=== PATIENT | female | born 1975 | race Caucasian/White ===

== ENCOUNTER → 2016-08-22 | Outpatient (CLI) | payer BC | LOC: WI 13:30 | PROVIDERS: ATTEND Physician Assistant | DX: Z12.31 Encounter for screening mammogram for malignant neoplasm of breast (principal) | CPT/HCPCS: 77067; G0202 ==

== ENCOUNTER 2016-12-07 08:42 | Emergency (ER) | payer BC ==
[2016-12-07] MEDS ORDERED: KETOROLAC TROMETHAMINE 60 MG/2 ML SDV IM ONE (09:28)
--- NOTE | 2016-12-07 09:30 | ER Document Report ---
ED Medical Screen (RME) - General Chief Complaint: Leg Pain Stated Complaint: LEFY LEG PAIN Time Seen by Provider: 12/07/16 09:24 Mode of Arrival: Wheelchair Information source: Patient TRAVEL OUTSIDE OF THE [place] IN LAST 30 DAYS: No - HPI Patient complains to provider of: Left leg pain Onset: This morning - pt. with acute onset of left leg pain earlier this am -- she denies h/o trauma - Related Data Allergies/Adverse Reactions: No Known Allergies Allergy (Verified 12/07/16 08:58) Past Medical History - Past Medical History Cardiac Medical History: Reports: Hx Hypertension - NOT ON MEDS AT THIS TIME Denies: Hx Coronary Artery Disease - ELEVATED LDL, Hx Heart Attack Pulmonary Medical History: Denies: Hx Asthma, Hx Bronchitis, Hx COPD, Hx Pneumonia Neurological Medical History: Denies: Hx Cerebrovascular Accident, Hx Seizures Renal/ Medical History: Denies: Hx Peritoneal Dialysis GI Medical History: Reports: Hx Gastroesophageal Reflux Disease Musculoskeltal Medical History: Reports Hx Arthritis - MID BACK, Reports Hx Musculoskeletal Deformity, Reports Hx Musculoskeletal Trauma Past Surgical History: Reports: Hx Abdominal Surgery - tummy tuck, Hx Breast Surgery, Hx Cholecystectomy, Hx Hysterectomy, Hx Orthopedic SurgeryComment Only : Hx Bowel Surgery - comestic - Immunizations Immunizations up to date: Yes Hx Diphtheria, Pertussis, Tetanus Vaccination: Yes Physical Exam - Vital signs Vitals: Temp Pulse Resp BP Pulse Ox 98.3 F 89 18 160/104 H 98 12/07/16 08:57 12/07/16 08:57 12/07/16 08:57 12/07/16 08:57 12/07/16 08:57 Course - Vital Signs Vital signs: Temp Pulse Resp BP Pulse Ox 98.3 F 89 18 160/104 H 98 12/07/16 08:57 12/07/16 08:57 12/07/16 08:57 12/07/16 08:57 12/07/16 08:57
[2016-12-07 10:21] LABS: ABSOLUTE BASOPHILS # (AUTO) 0.1 10^3/uL (0.0-0.2); ABSOLUTE EOSINOPHILS # (AUTO) 0.1 10^3/uL (0.0-0.6); ABSOLUTE LYMPHOCYTES (AUTO) 3.1 10^3/uL (0.5-4.7); ABSOLUTE MONOCYTES (AUTO) 0.5 10^3/uL (0.1-1.4); ABSOLUTE NEUT (AUTO) 5.3 10^3/uL (1.7-8.2); BASOPHILS % (AUTO) 1.3 % (0-2); EOSINOPHILS % (AUTO) 1.5 % (0-6); HEMATOCRIT 43.3 % (36.0-47.0); HEMOGLOBIN 14.6 g/dL (12.0-15.5); HGB HCT DIFFERENCE 0.5; LYMPHOCYTES % (AUTO) 33.7 % (13-45); MEAN CORPUSCULAR HEMOGLOBIN 29.8 pg (27.0-33.4); MEAN CORPUSCULAR HGB CONC 33.8 g/dL (32.0-36.0); MEAN CORPUSCULAR VOLUME 88 fl (80-97); MONOCYTES % (AUTO) 5.6 % (3-13); RED BLOOD COUNT 4.91 10^6/uL (3.72-5.28); RED CELL DISTRIBUTION WIDTH 13.1 % (11.5-14.0); SEGMENTED NEUTROPHILS % (AUTO) 57.9 % (42-78); WHITE BLOOD COUNT 9.2 10^3/uL (4.0-10.5)
[2016-12-07 10:26] LABS: APPEARANCE,URINE SLIGHTLY-CLOUDY; BILIRUBIN,URINE NEGATIVE (NEGATIVE); GLUCOSE, URINE NEGATIVE (NEGATIVE); KETONES,URINE NEGATIVE (NEGATIVE); LEUKOCYTE ESTERASE,URINE NEGATIVE (NEGATIVE); NITRITE,URINE NEGATIVE (NEGATIVE); PROTEIN,URINE NEGATIVE (NEGATIVE); UROBILINOGEN,URINE NEGATIVE mg/dL (<2.0)
[2016-12-07 10:38] LABS: ALANINE AMINOTRANSFERASE 52 U/L (9-52); ALBUMIN 5.1 g/dL (3.5-5.0); ALKALINE PHOSPHATASE 86 U/L (38-126); ANION GAP 14 (5-19); ASPARTATE AMINO TRANSFERASE 30 U/L (14-36); BILIRUBIN,DIRECT 0.3 mg/dL (0.0-0.4); BILIRUBIN,TOTAL 0.7 mg/dL (0.2-1.3); BLOOD UREA NITROGEN 16 mg/dL (7-20); CALCIUM 10.2 mg/dL (8.4-10.2); CARBON DIOXIDE 26 mmol/L (22-30); CHLORIDE 101 mmol/L (98-107); GLUCOSE 104 mg/dL (75-110); POTASSIUM 4.7 mmol/L (3.6-5.0); SODIUM 140.6 mmol/L (137-145); TOTAL PROTEIN 8.2 g/dL (6.3-8.2)
[2016-12-07] MEDS ORDERED: HYDROCODONE/ACETAMINOPHEN 5-325 MG TABLET PO ONE (11:08)
--- NOTE | 2016-12-07 11:11 | ER Document Report ---
ED Extremity Problem, Lower - General Chief Complaint: Leg Pain Stated Complaint: LEFT LEG PAIN Time Seen by Provider: 12/07/16 09:24 Mode of Arrival: Wheelchair Information source: Patient TRAVEL OUTSIDE OF THE [place] IN LAST 30 DAYS: No - HPI Patient complains to provider of: Pain Location: Knee, Leg Occurred: This morning Onset/Duration: Sudden Quality of pain: Dull, Sharp, Stabbing Severity: Moderate Pain Level: 4 Recent injury: No Associated symptoms: denies: Chest pain, Short of breath Exacerbated by: Movement Relieved by: Nothing Notes: Patient is a 40-year-old female who presents to the emergency room complaining of left posterior knee pain that started abruptly around 430 this morning, it is sharp and stabbing in nature in the popliteal space, and radiates down through the calf, it hurts when she moves it, or ambulate on it, no history of similar symptoms previously, she denies any injury or trauma, no shortness of breath and no chest pain, patient does not smoke, she does not take any hormone replacement or oral control, she denies any recent periods of immobilization, no history of DVT - Related Data Allergies/Adverse Reactions: No Known Allergies Allergy (Verified 12/07/16 08:58) Past Medical History - General Information source: Patient - Social History Smoking Status: Never Smoker Chew tobacco use (# tins/day): No Frequency of alcohol use: None Drug Abuse: None Family History: Reviewed & Not Pertinent, Arthritis, CAD, Hyperlipidemia, Hypertension, Malignancy Patient has suicidal ideation: No Patient has homicidal ideation: No - Past Medical History Cardiac Medical History: Reports: Hx Hypertension - NOT ON MEDS AT THIS TIME Denies: Hx Coronary Artery Disease - ELEVATED LDL, Hx Heart Attack Pulmonary Medical History: Denies: Hx Asthma, Hx Bronchitis, Hx COPD, Hx Pneumonia Neurological Medical History: Denies: Hx Cerebrovascular Accident, Hx Seizures Renal/ Medical History: Denies: Hx Peritoneal Dialysis GI Medical History: Reports: Hx Gastroesophageal Reflux Disease Musculoskeltal Medical History: Reports Hx Arthritis - MID BACK, Reports Hx Musculoskeletal Deformity, Reports Hx Musculoskeletal Trauma Past Surgical History: Reports: Hx Abdominal Surgery - tummy tuck, Hx Breast Surgery, Hx Cholecystectomy, Hx Hysterectomy, Hx Orthopedic SurgeryComment Only : Hx Bowel Surgery - comestic - Immunizations Immunizations up to date: Yes Hx Diphtheria, Pertussis, Tetanus Vaccination: Yes Review of Systems - Review of Systems Constitutional: No symptoms reported EENT: No symptoms reported Cardiovascular: No symptoms reported Respiratory: No symptoms reported Gastrointestinal: No symptoms reported Genitourinary: No symptoms reported Female Genitourinary: No symptoms reported Musculoskeletal: See HPI Skin: No symptoms reported Hematologic/Lymphatic: No symptoms reported Neurological/Psychological: No symptoms reported -: Yes All other systems reviewed and negative Physical Exam - Vital signs Vitals: Temp Pulse Resp BP Pulse Ox 98.3 F 89 18 160/104 H 98 12/07/16 08:57 12/07/16 08:57 12/07/16 08:57 12/07/16 08:57 12/07/16 08:57 - Notes Notes: - General General appearance: Appears well, Alert In distress: None - HEENT Head: Normocephalic, Atraumatic Eyes: Normal Conjunctiva: Normal Extraocular movements intact: Yes Eyelashes: Normal Pupils: PERRL - Respiratory Respiratory status: No respiratory distress - Cardiovascular Rhythm: Regular - Abdominal Inspection: Normal - Back Back: Normal - Extremities General upper extremity: Normal inspection General lower extremity: The palpate in popliteal space, positive calf tenderness, positive Homans sign on left, distal sensation and motor is intact with 2+ DP pulses and brisk capillary refill - Neurological Neuro grossly intact: Yes Orientation: AAOx4 Marine Coma Scale Eye Opening: Spontaneous Marine Coma Scale Verbal: Oriented [place] Coma Scale Motor: Obeys Commands [place] Coma Scale Total: 15 - Psychological Associated symptoms: Normal affect, Normal mood - Skin Skin Temperature: Warm Skin Moisture: Dry Skin Color: Normal Course - Re-evaluation Re-evalutation: 12/07/16 12:34 Imaging findings were discussed with patient at bedside which are unremarkable, no evidence of DVT, she does report some relief of pain with the hydrocodone that she received in the emergency room, she will be discharged with prescription for same as well as information for follow-up and advised to return if symptoms worsen, patient acknowledges understanding and agreement with this plan - Vital Signs Vital signs: Temp Pulse Resp BP Pulse Ox 98.3 F 89 18 160/104 H 98 12/07/16 08:57 12/07/16 08:57 12/07/16 08:57 12/07/16 08:57 12/07/16 08:57 - Laboratory Result Diagrams: 12/07/16 10:05 12/07/16 10:05 Laboratory results interpreted by me: 12/07/16 10:05 Albumin 5.1 H - Diagnostic Test Radiology reviewed: Image reviewed, Reports reviewed Discharge - Discharge Clinical Impression: Knee pain, left Qualifiers: Chronicity: acute Qualified Code(s): M25.562 - Pain in left knee Condition: Stable Disposition: HOME, SELF-CARE Instructions: Suspected Internal Knee Injury ([facility]), Leg Pain Nonspecific ([facility]) Additional Instructions: Follow up with your primary care provider and an orthopedic surgeon in one to 2 days. Return to the emergency room immediately if symptoms worsen or any additional concerns. Ice and elevate the affected extremity. Limit weightbearing. Prescriptions: Hydrocodone/Acetaminophen [Hydrocodon-Acetaminophen 5-325] 1 each PO Q6 #20 tablet Forms: Return to Work
--- NOTE | 2016-12-07 12:17 | RADIOLOGY REPORT (SQ) ---
EXAM DESCRIPTION: VENOUS UNILATERAL LOWER COMPLETED DATE/TIME: 12/07/2016 12:04 pm REASON FOR STUDY: Left leg pain/atraumatic COMPARISON: None. TECHNIQUE: Dynamic and static melgar scale and color images acquired of the left leg venous system. Se lected spectral images acquired with additional compression and augmentation maneuvers. The contralat eral common femoral vein and saphenofemoral junction were also imaged. Images stored on PACS. LIMITATIONS: None. FINDINGS: COMMON FEMORAL: Normal phasicity, compression and augmentation. No visualized echogenic ma terial on melgar scale. No defects on color images. FEMORAL: Normal compression and augmentation. No visualized echogenic material on melgar scale. No defe cts on color images. POPLITEAL: Normal compression, augmentation. No visualized echogenic material on melgar scale. No defec ts on color images. CALF VESSELS: Normal compression, augmentation. No visualized echogenic material on melgar scale. No de fects on color images. GSV and SSV: Normal compression, augmentation. No visualized echogenic material on melgar scale. No def ects on color images. ANY DEEP VENOUS INSUFFICIENCY: Not evaluated. ANY EVIDENCE OF POPLITEAL CYST: No. OTHER: No other significant finding. CONTRALATERAL COMMON FEMORAL VEIN AND SAPHENOFEMORAL JUNCTION: Normal phasicity, compression and augmentation. No visualized echogenic material on melgar scale. No de fects on color images. IMPRESSION: NO EVIDENCE DVT OR SVT IN THE LEFT LEG. TECHNICAL DOCUMENTATION: JOB ID: [id number] [employer]- All Rights Reserved
[2016-12-07 12:58] VITALS: BP 143/95
== END 2016-12-07 12:59 | disposition home or self-care (01) ==
LOC: ER 08:42
DX: M25.562 Pain in left knee (principal); Z90.49 Acquired absence of other specified parts of digestive tract; Z90.710 Acquired absence of both cervix and uterus
CPT/HCPCS: 99284; 96372; 36415; 85025; 80053; 81001; 93971; J1885

== ENCOUNTER → 2018-04-20 | Outpatient (CLI) | payer BC ==
--- NOTE | 2018-04-20 11:38 | RADIOLOGY REPORT (SQ) ---
EXAM DESCRIPTION: U/S THYROID/SFT TISS HD NECK COMPLETED DATE/TIME: 04/20/2018 11:01 am REASON FOR STUDY: SIALOADENITIS, UNSPECIFIED K11.20 SIALOADENITIS, UNSPECIFIED COMPARISON: None. TECHNIQUE: Dynamic and static melgar-scale images acquired of the right and left submandibular glands. Selected additional color/power Doppler images recorded. All images stored to PACS. LIMITATIONS: None. FINDINGS: Bilateral submandibular glands are normal in size, without cysts or dilated ducts identifi ed. Both submandibular glands measure about 3.3 x 0.9 x 2 cm in size. Scanning of the floor of mouth demonstrates no shadowing submandibular ductal calcifications. Bilateral benign-appearing submandibular lymph nodes, 1.3 x 0.5 cm on the right, 1.2 x 0.5 cm on the left, 0.8 x 0.5 cm on the left. IMPRESSION: Normal size bilateral submandibular glands without ultrasound evidence of ductal dilatat ion or submandibular ductal stones. TECHNICAL DOCUMENTATION: JOB ID: [id number] [employer]- All Rights Reserved Reading location - IP/workstation name: [email or web address]
== END ==
LOC: RAD 09:40
PROVIDERS: ATTEND Nurse Practitioner Family
DX: K11.20 Sialoadenitis, unspecified (principal)
CPT/HCPCS: 76536

== ENCOUNTER → 2020-01-03 | Outpatient (CLI) | payer BC ==
--- NOTE | 2020-01-03 15:11 | WOMENS IMAGING REPORT ---
EXAM DESCRIPTION: 3D SCREENING MAMMO BILAT IMAGES COMPLETED DATE/TIME: 01/03/2020 2:53 pm REASON FOR STUDY: Z12.31 ENCOUNTER FOR SCREENING MAMMOGRAM FOR MALIGNANT NEOPLASM OF BREAST Z12.31 ENCNTR SCREEN MAMMOGRAM FOR MALIGNANT NEOPLASM OF TOM COMPARISON: 2010, 2014, 2016 EXAM PARAMETERS: Views: Standard craniocaudal and mediolateral oblique views of each breast recorded using digital acquisition and breast tomosynthesis. Read with the assistance of CAD. .[facility] - R2 [employer] Version 9.2 LIMITATIONS: None. FINDINGS: No suspicious masses, suspicious calcifications or architectural distortion. No areas of c oncern. IMPRESSION: NEGATIVE MAMMOGRAM. BIRADS 1. BREAST DENSITY: b. There are scattered areas of fibroglandular density. BIRAD: ASSESSMENT: 1 NEGATIVE RECOMMENDATION: ROUTINE SCREENING COMMENT: The patient has been notified of the results by letter per MQSA requirements. Additional no tification policies are in place for contacting patient with suspicious or incomplete findings. Quality ID #[id number]: The [employer] recommends an annual screening mammogram for women aged 40 years or over. This facility utilizes a reminder system to ensure that all patients receive reminder letters, and/or direct phone calls for appointments. This includes reminders for routine scr eening mammograms, diagnostic mammograms, or other Breast Imaging Interventions when appropriate. Th is patient will be placed in the appropriate reminder system. TECHNICAL DOCUMENTATION: FINDING NUMBER: (1) ASSESSMENT: (1) JOB ID: [id number] 2010 [employer]- All Rights Reserved Reading location - IP/workstation name: [email or web address]
== END ==
LOC: WI 13:57
PROVIDERS: ATTEND Physician Assistant
DX: Z12.31 Encounter for screening mammogram for malignant neoplasm of breast (principal)
CPT/HCPCS: 77063; 77067

== ENCOUNTER → 2020-01-24 | Outpatient (CLI) | payer BC ==
--- NOTE | 2020-01-24 15:04 | ER RDC ASSESSMENT REPORT ---
Intake - In the Last 14 days Have you traveled outside [place]?: No Have you been in close contact with someone CONFIRMED: No Worked in Healthcare?: No - Symptoms Subjective Fever([place] feverish): Yes Chills: No Muscule Aches: No Runny Nose: No Sore Throat: Yes Cough (New or worsening chronic cough): No Shortness of breath: No Nausea or Vomiting: Yes Headache: Yes Abdominal Pain: Yes Diarrhea(3 or more loose stools in last 24 hours): Yes - Do you have any of the following Chronic lung disease: Asthma or emphysema or COPD: No Cystic Fibrosis: No Diabetes: No High Blood Pressure: Yes Cardiovascular Disease: No Chronic Kidney Disease: No Chronic Liver Disease: No Chronic blood disorder like Sickle Cell Disease: No Weak immune system due to disease or medication: No Neurologic condition that limits movement: No Developmental delay - Moderate to Severe: No Recent (within past 2 weeks) or current : No Morbid Obesity (>100 pounds over ideal weight): No - Objective Vital Signs: 5'5", 168 lb Temperature: 98.3 F Pulse Rate: 85 Respiratory Rate: 16 Blood Pressure: 109/65 O2 Sat by Pulse Oximetry: 94 Objective: Given above, testing performed: strep, covid Disposition: Home; Selfcare General - General Chief Complaint: Flu Symptoms Time Seen by Provider: 01/24/20 15:00 Mode of Arrival: Ambulatory - [facility] Notes: 44-year-old female presents to [facility] clinic for COVID-19 testing. Patient denies any known exposure to COVID-19 positive individual. Patient reports onset of symptoms 01/22/2020. She is complaining of subjective fever, sore throat, nausea, headache, abdominal discomfort, and diarrhea. Patient is denying chil ls, myalgia, runny nose, cough, and shortness of breath. Patient states she does have a history of gastroparesis so diarrhea is not that abnormal for her. Has additional medical history significant for hypertension and Perez's esophagus as well as Rosaura's hypothyroid. - Related Data Allergies/Adverse Reactions: No Known Allergies Allergy (Verified 12/07/16 08:58) Past Medical History - General Information source: Patient - Social History Smoking Status: Never Smoker Family History: Reviewed & Not Pertinent, Arthritis, CAD, Hyperlipidemia, Hypertension, Malignancy - Past Medical History Cardiac Medical History: Reports: Hx Hypertension - NOT ON MEDS AT THIS TIME Denies: Hx Coronary Artery Disease - ELEVATED LDL, Hx Heart Attack Pulmonary Medical History: Reports: None Denies: Hx Asthma, Hx Bronchitis, Hx COPD, Hx Pneumonia EENT Medical History: Reports: None Neurological Medical History: Reports: None. Denies: Hx Cerebrovascular Accident, Hx Seizures Endocrine Medical History: Reports: Hx Hypothyroidism Renal/ Medical History: Reports: None. Denies: Hx Peritoneal Dialysis Malignancy Medical History: Reports: None GI Medical History: Reports: Hx Gastroesophageal Reflux Disease Other: barretts esophagus, gastroparesis Musculoskeletal Medical History: Reports Hx Arthritis - MID BACK, Reports Hx Musculoskeletal Deformity, Reports Hx Musculoskeletal Trauma Skin Medical History: Reports None Psychiatric Medical History: Reports: None Traumatic Medical History: Reports: None Infectious Medical History: Reports: None Past Surgical History: Reports: Hx Abdominal Surgery - tummy tuck, Hx Breast Surgery, Hx Cholecystectomy, Hx Hysterectomy, Hx Orthopedic SurgeryComment Only: Hx Bowel Surgery - comestic Physical Exam - General General appearance: Appears well, Alert In distress: None Notes: PHYSICAL EXAMINATION: GENERAL: Well-appearing and in no acute distress. HEAD: Atraumatic, normocephalic. EYES: sclera anicteric, conjunctiva are normal. ENT: nares patent. Moist mucous membranes. NECK: Normal range of motion, supple without lymphadenopathy LUNGS: CTAB and equal. No wheezes rales or rhonchi. HEART: Regular rate and rhythm without murmurs ABDOMEN: Soft, nontender, normal bowel sounds, no guarding. EXTREMITIES: Normal range of motion, no pitting edema. No cyanosis. NEUROLOGICAL: Cranial nerves grossly intact. Normal speech. PSYCH: Normal mood, normal affect. SKIN: Warm, Dry, normal turgor, no rashes or lesions noted Patient Education/Counseling Counseling/Education: Patient presents with upper respiratory symptoms worrisome for possible Covid 19. Patient does not have emergency worrying symptoms such as difficulty breathing, shortness of breath, chest pain, pressure, confusion or cyanosis. Patient appears suitable for discharge as vital signs are stable and patient is nontoxic in appearance. Good return precautions have been discussed with patient, patient verbalized understanding and is agreeable with discharge plan of care at this time. Guidance for worsening S/SX: As a person under investigation for Covid 19, the [facility] of Health and Human Services, division of public health advises you to adhere to the following guidance until your test results are reported to you. If your test result is positive, you will receive additional information from your provider and your local health department at that time. Remain at home until you are cleared by the health provider or public health authorities. Keep a log of visitors to your home, notify any visitors to your home of your isolation status. If you plan to move to a new address or leave the county, notify the local health department in your County. Call your doctor or seek care if you have an urgent medical need. Before seeking medical care, call ahead to get instructions from the provider before arriving at the medical office clinic or hospital. Notify them that you are being tested for the virus that causes Covid 19 so that arrangements can be made, as necessary, to prevent transmission to others in the healthcare setting. Next, notify the local health department in your county. If a medical emergency arises and you need to call 911, inform the first responders that you are being tested for the virus that causes Covid 19. Next, notify the local health department in your county. RDC Discharge - Discharge Clinical Impression: Encounter for screening laboratory testing for COVID-19 virus URI (upper respiratory infection) Qualifiers: URI type: unspecified URI Qualified Code(s): J06.9 - Acute upper respiratory infection, unspecified Condition: Good Disposition: Home; Selfcare
[2020-01-24 15:15] VITALS: BP 109/65
== END ==
LOC: RDC 14:42
PROVIDERS: ATTEND Registered Nurse
DX: Z20.828 Contact with and (suspected) exposure to other viral communicable diseases (principal); J06.9 Acute upper respiratory infection, unspecified; R50.9 Fever, unspecified; R19.7 Diarrhea, unspecified; R11.2 Nausea with vomiting, unspecified; I10 Essential (primary) hypertension
CPT/HCPCS: 87070; 87880; 87635; C9803; 99201; 99211

== ENCOUNTER 2020-05-24 02:26 | Emergency (ER) | payer BC ==
[2020-05-24 03:17] LABS: ABSOLUTE BASOPHILS # (AUTO) 0.1 10^3/uL (0.0-0.2); ABSOLUTE EOSINOPHILS # (AUTO) 0.2 10^3/uL (0.0-0.6); ABSOLUTE MONOCYTES (AUTO) 0.5 10^3/uL (0.1-1.4); ABSOLUTE NEUT (AUTO) 3.4 10^3/uL (1.7-8.2); BASOPHILS % (AUTO) 0.8 % (0-2); EOSINOPHILS % (AUTO) 2.3 % (0-6); HEMATOCRIT 42.1 % (36.0-47.0); HEMOGLOBIN 14.3 g/dL (12.0-15.5); LYMPHOCYTES % (AUTO) 42.3 % (13-45); MEAN CORPUSCULAR HEMOGLOBIN 29.3 pg (27.0-33.4); MEAN CORPUSCULAR HGB CONC 33.9 g/dL (32.0-36.0); MEAN CORPUSCULAR VOLUME 86 fl (80-97); MONOCYTES % (AUTO) 6.7 % (3-13); PLATELET COUNT 228 10^3/uL (150-450); RED BLOOD COUNT 4.88 10^6/uL (3.72-5.28); RED CELL DISTRIBUTION WIDTH 13.3 % (11.5-14.0); SEGMENTED NEUTROPHILS % (AUTO) 47.9 % (42-78); TOTAL CELLS COUNTED % (AUTO) 100 %; WHITE BLOOD COUNT 7.1 10^3/uL (4.0-10.5)
[2020-05-24 03:23] LABS: ALBUMIN 4.8 g/dL (3.5-5.0); ALKALINE PHOSPHATASE 67 U/L (38-126); ANION GAP 10 (5-19); ASPARTATE AMINO TRANSFERASE 24 U/L (14-36); BILIRUBIN,DIRECT 0.1 mg/dL (0.0-0.4); BILIRUBIN,TOTAL 0.9 mg/dL (0.2-1.3); BLOOD UREA NITROGEN 14 mg/dL (7-20); CALCIUM 10.2 mg/dL (8.4-10.2); CARBON DIOXIDE 26 mmol/L (22-30); CHLORIDE 103 mmol/L (98-107); CREATINE KINASE 61 U/L (30-135); GLUCOSE 112 mg/dL (75-110); TOTAL PROTEIN 7.8 g/dL (6.3-8.2)
[2020-05-24 03:36] LABS: CREATINE KINASE MB < 0.22 ng/mL (<4.55); TROPONIN I < 0.012 ng/mL
[2020-05-24] MEDS ORDERED: ONDANSETRON HCL INJ/PF 4 MG/2 ML SDV IV ONE (05:18)
[2020-05-24] MEDS ORDERED: MORPHINE SULFATE 10 MG/ML INJ IV ONE (05:19)
--- NOTE | 2020-05-24 05:35 | ER Document Report ---
ED Extremity Problem, Upper - General TRAVEL OUTSIDE OF THE [place] IN LAST 30 DAYS: No - Related Data Home Medications: omeprazole, 2 thyroid meds, lisinopril <MEGA HUDSON - Last Filed: 05/24/20 07:11> <MARK MUSE - Last Filed: 05/24/20 10:14> - General Chief Complaint: Chest Pain > 30 Stated Complaint: LEFT ARM PAIN/NECK PAIN Time Seen by Provider: 05/24/20 04:54 Primary Care Provider: UMA STEELE PA-C [Primary Care Provider] - Follow up as needed Notes: CHIEF COMPLAINT: Left arm pain for 2 days HPI: 44-year-old female with history of hypertension presenting with left arm pain for 2 days. No chest pain. No shortness of breath. Denies neck pain anterior or posterior. Denies headache. Denies visual change. Denies numbness or tingling in the extremity. Describes the discomfort as a sore ache that began when she woke up from sleep 2 days ago. It has progressively worsened to a discomfort in the left arm extending from the top of the shoulder down to the wrist. Describes a crushing pain in the forearm. Has not had shortness of breath. Denies pleuritic pain. Went to an urgent care yesterday was prescribed Valium for this took it twice and did not have any resolution of the pain so decided to come to the [facility]. Patient does relate that she has not been taking her blood pressure medication normally takes lisinopril ROS: See HPI - all other systems were reviewed and are otherwise negative Constitutional: no fever Eyes: no drainage, no blurred vision ENT: no runny nose, no sore throat Cardiovascular: no chest pain Resp: no SOB, no cough GI: no vomiting, no diarrhea, no abdominal pain : no dysuria Integumentary: no rash Allergy: no hives Musculoskeletal: + extremity pain or swelling Neurological: no numbness/tingling, no weakness MEDICATIONS: I agree with the patient medications as charted by the RN. ALLERGIES: I agree with the allergies as charted by the RN. PAST MEDICAL HISTORY/PAST SURGICAL HISTORY: Reviewed and agree as charted by RN. SOCIAL HISTORY: Reviewed and agree as charted by RN. FAMILY HISTORY: No significant familial comorbid conditions directly related to patient complaint EXAM: Reviewed vital signs as charted by RN. CONSTITUTIONAL: Alert and oriented and responds appropriately to questions. Well-appearing; well-nourished HEAD: Normocephalic; atraumatic EYES: PERRL; Conjunctivae clear, sclerae non-icteric ENT: normal nose; no rhinorrhea; moist mucous membranes; pharynx without lesions noted, no uvula edema or deviation, no tonsillar hypertrophy, phonation normal NECK: Supple without meningismus; non-tender; no cervical lymphadenopathy, no masses CARD: RRR; no murmurs, no clicks, no rubs, no gallops; symmetric distal pulses RESP: Normal chest excursion without splinting or tachypnea; breath sounds clear and equal bilaterally; no wheezes, no rhonchi, no rales, pulse oximetry 99% on room air not hypoxic ABD/GI: Normal bowel sounds; non-distended; soft, non-tender, no rebound, no guarding; no palpable organomegaly or masses. BACK: The back appears normal and is non-tender to palpation, there is no CVA tenderness EXT: Normal ROM in all joints; there is absolutely no swelling or erythema to the left arm upper or lower. The compartments are soft in the left arm upper and lower. Brachial radial and ulnar pulses are present in the left upper extremity. Patient able to flex and extend the extremity at the shoulder, elbow, wrist. Able to fully flex and extend the fingers of the left hand as well as abduct the thumb. Sensation is intact in the distal fingertips to touch with capillary refill less than 3 seconds. There does not appear to be significant reproducible pain on palpation of the left forearm in the area the patient indicates as the site of her most significant discomfort. There is no change in the discomfort with flexion extension or rotation of the head to the left or right. SKIN: Normal color for age and race; warm; dry; good turgor; no acute lesions noted NEURO: Moves all extremities equally; Motor and sensory function intact PSYCH: The patient's mood and manner are appropriate. Grooming and personal hygiene are appropriate. MDM: 44-year-old female describing an extreme pain in the left arm for 2 days that has been constant. Initial screening cardiac labs by the triage process were completely normal. Awaiting chest x-ray. Patient is constantly moving the arm in the room will not sit still with the arm she denies any drug or alcohol use. I did review the patient on the [place] narcotics database without finding entry other than the Valium. Patient has no other neurologic symptoms I have low suspicion for CVA. She has no complaints of chest pain or shortness of breath have low suspicion for ACS. Her EKG is sinus tachycardia with a ventricular rate of 105. [place] 140, QT 312, QTc 09/06/2012. Nonspecific T wave flattening across all leads otherwise normal EKG. Interpreted by emergency department physicians. Although I have lower suspicion for a dissection or aneurysm given the lack of abdominal or chest discomfort or shortness of breath and normal lab work will obtain CTA of the chest and abdomen to evaluate for dissection. We will also place the patient in line for venous Doppler of the left upper extremity although she has no cording of the veins, no definitive suggestion of a DVT. Case was discussed with Dr. Gallardo (MEGA HUDSON) - Related Data Allergies/Adverse Reactions: No Known Allergies Allergy (Verified 12/07/16 08:58) Past Medical History - Social History Smoking Status: Never Smoker Chew tobacco use (# tins/day): No Frequency of alcohol use: None Drug Abuse: None Family History: Reviewed & Not Pertinent, Arthritis, CAD, Hyperlipidemia, Hypertension, Malignancy - Past Medical History Cardiac Medical History: Reports: Hx Hypertension - NOT ON MEDS AT THIS TIME Denies: Hx Coronary Artery Disease - ELEVATED LDL, Hx Heart Attack Pulmonary Medical History: Denies: Hx Asthma, Hx Bronchitis, Hx COPD, Hx Pneumonia Neurological Medical History: Denies: Hx Cerebrovascular Accident, Hx Seizures Endocrine Medical History: Reports: Hx Hypothyroidism Renal/ Medical History: Denies: Hx Peritoneal Dialysis GI Medical History: Reports: Hx Gastroesophageal Reflux Disease Musculoskeletal Medical History: Reports Hx Arthritis - MID BACK, Reports Hx Musculoskeletal Deformity, Reports Hx Musculoskeletal Trauma Past Surgical History: Reports: Hx Abdominal Surgery - tummy tuck, Hx Breast Surgery, Hx Cholecystectomy, Hx Hysterectomy, Hx Orthopedic SurgeryComment Only: Hx Bowel Surgery - comestic - Immunizations Immunizations up to date: Yes Hx Diphtheria, Pertussis, Tetanus Vaccination: Yes <MEGA HUDSON - Last Filed: 05/24/20 07:11> Physical Exam - Vital signs Vitals: Temp Pulse Resp BP Pulse Ox 98.1 F 92 20 164/101 H 98 05/24/20 02:39 05/24/20 02:39 05/24/20 02:39 05/24/20 02:39 05/24/20 02:39 Course - Laboratory Result Diagrams: 05/24/20 02:55 05/24/20 02:55 <MEGA HUDSON - Last Filed: 05/24/20 07:11> - Laboratory Result Diagrams: 05/24/20 02:55 05/24/20 02:55 <MARK MUSE - Last Filed: 05/24/20 10:14> - Re-evaluation Re-evalutation: 05/24/20 07:11 Patient appears much more comfortable at this time she is no longer having these random movements of her arm. Dissection study was negative second troponin was negative her other labs are negative awaiting venous Doppler, report will be given to oncoming shift to follow and disposition but I suspect regional pain syndrome or radiculopathy (MEGA HUDSON) 05/24/20 08:18 Receive report from Mega Hudson NP. Patient's complaining of pain. Waiting for venous Doppler study to be done. Ordered the patient a dose of [place]. 05/24/20 10:11 Venous Doppler study is negative. Patient states that she does feel better after receiving a dose of [place]. She then reported to me her surgical history of her left arm and states that she was seen by an orthopedic doctor in [facility], who recommended laparoscopic surgery. She did not want to have that done. I recommended that she follow-up with them to possibly remedy her pain. She is in agreement with this plan. Follow-up precautions were given. Verbal discharge instructions were given to the patient. They verbalized understanding. They are stable for discharge. (MARK MUSE) - Vital Signs Vital signs: Temp Pulse Resp BP Pulse Ox 98.1 F 92 21 H 133/91 H 95 05/24/20 02:39 05/24/20 02:39 05/24/20 08:01 05/24/20 08:01 05/24/20 08:01 - Laboratory Laboratory results interpreted by me: 05/24/20 02:55 Glucose 112 H Discharge <MEGA HUDSON - Last Filed: 05/24/20 07:11> <MARK MUSE - Last Filed: 05/24/20 10:14> - Discharge Clinical Impression: Left arm pain Condition: Stable Disposition: HOME, SELF-CARE Additional Instructions: You were seen here in the emergency department for chest pain, left arm pain, and neck pain. Your work-up was very reassuring. Please follow-up with your orthopedic doctor in regards to your arm pain. Take [place] as needed for pain. Please do not operate heavy machinery when taking this medication. Do not drive taking this medicine. Prescriptions: Hydrocodone/Acetaminophen [[place] 5-325 mg Tablet] 1 tab PO ASDIR PRN #12 tablet PRN Reason: Forms: Return to Work Referrals: UMA STEELE PA-C [Primary Care Provider] - Follow up as needed
--- NOTE | 2020-05-24 06:56 | RADIOLOGY REPORT (SQ) ---
CT angiogram chest, abdomen and pelvis with contrast on 05/24/2020 at 6:02 AM CLINICAL INDICATION: Chest pain, concern for aortic dissection TECHNIQUE: Multiple axial images are obtained throughout the chest, abdomen and pelvis following the administration of IV contrast. Computer generated 3D reconstructions/MIPS were performed. This exam was performed according to our departmental dose-optimization program, which includes automated exposure control, adjustment of the mA and/or kV according to patient size and/or use of iterative reconstruction technique. Total DLP is 1026.71 mGy*cm. COMPARISON: CT abdomen and pelvis from 06/21/2015 FINDINGS: CHEST: There is minimal bilateral dependent atelectasis. The lungs are otherwise clear. There is no thoracic aortic aneurysm or dissection. There is no pleural or pericardial effusion. There is no thoracic adenopathy. There are no filling defects within the pulmonary arteries to suggest pulmonary embolus. No acute bony abnormality of the thorax is noted. There are three great vessels originating off the aortic arch without stenosis of the proximal great vessels. ABDOMEN: There is no abdominal aortic aneurysm or dissection. The celiac, SMA and SHA are patent and unremarkable. There are single bilateral renal arteries with no renal artery stenosis. The patient is status post cholecystectomy. The solid abdominal organs are unremarkable. There is no abdominal adenopathy. There is no free fluid or free air within the abdomen. The abdominal portion of the GI tract is unremarkable. Pelvis: The patient is status post hysterectomy. There is a simple appearing 2.3 x 2.2 x 1.7 cm dominant follicle in the left ovary which should be considered benign with no follow-up recommended. No free fluid is noted in the pelvis. There is no pelvic adenopathy. No iliac or proximal femoral arterial disease is noted. Pelvic portion of the GI tract including the appendix is unremarkable. Degenerative changes are noted in the spine. IMPRESSION: 1. No evidence of thoracic or abdominal aortic aneurysm or dissection and no evidence of pulmonary embolus. 2. Essentially unremarkable exam.
[2020-05-24] MEDS ORDERED: HYDROCODONE/ACETAMINOPHEN 5-325 MG TABLET PO ONE (08:17)
--- NOTE | 2020-05-24 08:34 | EKG REPORT ---
SEVERITY:- OTHERWISE NORMAL ECG - SINUS TACHYCARDIA : Confirmed by: Rita Cox MD 24-May-2020 08:33:41
[2020-05-24 09:14] LABS: URINE AMPHETAMINES SCREEN NEGATIVE; URINE BARBITURATES SCREEN NEGATIVE; URINE BENZODIAZEPINES SCREEN NEGATIVE; URINE COCAINE SCREEN NEGATIVE; URINE MARIJUANA (THC) SCREEN NEGATIVE; URINE METHADONE SCREEN NEGATIVE; URINE PHENCYCLIDINE SCREEN NEGATIVE
[2020-05-24 10:26] VITALS: BP 143/95
--- NOTE | 2020-05-24 12:06 | RADIOLOGY REPORT (SQ) ---
EXAM DESCRIPTION: VENOUS UNILATERAL UPPER IMAGES COMPLETED DATE/TIME: 05/24/2020 11:53 am REASON FOR STUDY: LUE pain/swelling, eval for dvt COMPARISON: None. TECHNIQUE: Dynamic and static melgar scale and color images acquired of the left arm venous system. Se lected spectral images acquired with additional compression and augmentation maneuvers. The contralat eral subclavian vein and internal jugular vein were also imaged. Images stored on PACS. LIMITATIONS: None. FINDINGS: INTERNAL JUGULAR VEIN: Normal phasicity, compression, augmentation. No visualized echogeni c material on melgar scale. No defects on color images. Comparison opposite side normal. SUBCLAVIAN VEIN: Normal compression, augmentation. No visualized echogenic material on melgar scale. No defects on color images. AXILLARY VEIN: Normal compression, augmentation. No visualized echogenic material on melgar scale. No d efects on color images. BRACHIAL VEIN: Normal compression, augmentation. No visualized echogenic material on melgar scale. No d efects on color images. BASILIC VEIN: Normal compression, augmentation. No visualized echogenic material on melgar scale. No de fects on color images. CEPHALIC VEIN: Normal compression, augmentation. No visualized echogenic material on melgar scale. No d efects on color images. OTHER: No other significant finding. CONTRALATERAL SUBCLAVIAN VEIN AND INTERNAL JUGULAR VEIN: Normal phasicity, compression and augmentation. No visualized echogenic material on melgar scale. No de fects on color images. IMPRESSION: NO EVIDENCE DVT OR SVT IN THE LEFT ARM. TECHNICAL DOCUMENTATION: JOB ID: [id number] 2010 [employer]- All Rights Reserved Reading location - IP/workstation name: [email or web address]
== END 2020-05-24 10:30 | disposition home or self-care (01) ==
LOC: ER 02:26
DX: M79.602 Pain in left arm (principal); M25.512 Pain in left shoulder; M25.532 Pain in left wrist; R07.9 Chest pain, unspecified; M54.2 Cervicalgia; I10 Essential (primary) hypertension; Z91.14 Patient's other noncompliance with medication regimen
CPT/HCPCS: 93005; 99285; 96374; 96375; 36415; 82553; 82550; 85025; 80053; 84484; 80307; 93971; 71275; 74174; 93010; J2270; J2405